=== PATIENT | male | born 1990 | race African-American/Black ===

== ENCOUNTER 2018-09-27 14:19 | Emergency (ER) | payer OTHER ==
[~2018-09-27] VITALS: Ht 182.9 cm; Wt 65.9 kg
[2018-09-27 14:40] VITALS: BP 146/93
[2018-09-27] MEDS ORDERED: PROPARACAINE HCL 0.5% 15 ML OPHTHALMIC SOLUTION OU ONE (15:30)
[2018-09-27] MEDS ORDERED: FLUORESCEIN SODIUM 1 MG STRIP OD ONE (15:30)
== END 2018-09-27 16:05 | disposition home or self-care (01) ==
LOC: EMS 14:21
DX: H10.89 Other conjunctivitis (principal); B99.9 Unspecified infectious disease; F17.210 Nicotine dependence, cigarettes, uncomplicated; F12.90 Cannabis use, unspecified, uncomplicated